=== PATIENT | female | born 1940 | race Caucasian/White ===

== ENCOUNTER 2018-12-15 08:26 | Day surgery (SDC) | payer MEDICARE ==
[2018-12-15] VITALS (12 sets, daily range): BP systolic 120–144; BP diastolic 58–79
[~2018-12-15] VITALS: Ht 167.6 cm; Wt 59.1 kg
[2018-12-15 10:07] LABS: ANION GAP 9 (8-16); BLOOD UREA NITROGEN 11 MG/DL (7-18); BUN/CREATININE RATIO 14.3 (6.6-38.0); CALCIUM 9.6 MG/DL (8.5-10.1); CHLORIDE 106 MMOL/L (99-107); CREATININE 0.77 MG/DL (0.40-0.90); GLUCOSE 89 MG/DL (70-104); POTASSIUM 4.3 MMOL/L (3.5-5.1); SODIUM 144 MMOL/L (135-145); TOTAL CARBON DIOXIDE 29.2 MMOL/L (24-32); eGFR 73 ML/MIN
[2018-12-15 10:12] LABS: BASOPHILS % (AUTO) 0.8 % (0-1); EOSINOPHILS # (AUTO) 0.1 X10'3 (0-0.9); EOSINOPHILS % (AUTO) 1.7 % (0-6); HEMATOCRIT 43.7 % (35.0-45.0); HEMOGLOBIN 14.7 g/dl (12.0-16.0); LYMPHOCYTES # (AUTO) 1.1 X10'3 (1.1-4.8); LYMPHOCYTES % (AUTO) 27.3 % (21-51); MEAN CORPUSCULAR HEMOGLOBIN 31.4 PG (27.0-31.0); MEAN CORPUSCULAR HGB CONC 33.7 g/dL (33.0-36.5); MEAN CORPUSCULAR VOLUME 93.2 FL (78-98); MEAN PLATELET VOLUME 8.8 FL (7.4-10.4); MONOCYTES # (AUTO) 0.5 X10'3 (0-0.9); MONOCYTES % (AUTO) 12.2 % (2-12); NEUTROPHILS # (AUTO) 2.3 X10'3 (1.8-7.7); PLATELET COUNT 199 X10'3 (140-440); RED BLOOD COUNT 4.68 X10'6 (4.20-5.60); WHITE BLOOD COUNT 3.9 X10'3 (4.5-11.0)
[2018-12-15] MEDS ORDERED: midazolam 2 mg/2 ml injection IV PRN (10:35)
[2018-12-15] MEDS ORDERED: fentaNYL/PF 50MCG/1 ML 2ML syringe IV PRN (10:35)
[2018-12-15] MEDS ORDERED: LIDOcaine 1% (10mg/ml) 2ml vial SQ ONE (10:35)
[2018-12-15] MEDS ORDERED: fentaNYL/PF 50MCG/1 ML 2ML syringe ONE (10:40)
[2018-12-15] MEDS ORDERED: midazolam 2 mg/2 ml injection ONE (10:40)
[2018-12-15] MEDS ORDERED: LEVO88TA2 PO (11:18)
[2018-12-15] MEDS ORDERED: BIOT1TAB PO (11:18)
== END 2018-12-15 12:45 | disposition home or self-care (01) ==
LOC: SSTAY O 08:26
PROVIDERS: ATTEND Radiology Vascular & Interventional Radiology
DX: I89.8 Other specified noninfective disorders of lymphatic vessels and lymph nodes (principal); Z88.5 Allergy status to narcotic agent; Z88.0 Allergy status to penicillin; Z90.11 Acquired absence of right breast and nipple; Z72.89 Other problems related to lifestyle; Z85.3 Personal history of malignant neoplasm of breast; Z79.01 Long term (current) use of anticoagulants; Z79.899 Other long term (current) drug therapy
CPT/HCPCS: 36415; 38505; 80048; 85025; 85610; 88184; 88185; 99152; 99153; J2250; J3010; 88173; 88305

== ENCOUNTER 2018-12-25 07:36 | Day surgery (SDC) | payer MEDICARE ==
[~2018-12-25] VITALS: Ht 167.6 cm; Wt 58.3 kg
[~2018-12-25 07:36] MED LIST: BIOT1TAB PO; LEVO88TA2 PO
[2018-12-25 08:10] VITALS: BP 114/61
[2018-12-25 08:56] LABS: BASOPHILS % (AUTO) 0.7 % (0-1); EOSINOPHILS # (AUTO) 0.1 X10'3 (0-0.9); HEMATOCRIT 41.5 % (35.0-45.0); HEMOGLOBIN 14.2 g/dl (12.0-16.0); LYMPHOCYTES # (AUTO) 1.2 X10'3 (1.1-4.8); LYMPHOCYTES % (AUTO) 27.6 % (21-51); MEAN CORPUSCULAR HEMOGLOBIN 31.8 PG (27.0-31.0); MEAN CORPUSCULAR HGB CONC 34.3 g/dL (33.0-36.5); MEAN CORPUSCULAR VOLUME 92.8 FL (78-98); MONOCYTES # (AUTO) 0.6 X10'3 (0-0.9); NEUTROPHILS # (AUTO) 2.5 X10'3 (1.8-7.7); NEUTROPHILS % (AUTO) 55.7 % (42-75); PLATELET COUNT 189 X10'3 (140-440); RED BLOOD COUNT 4.47 X10'6 (4.20-5.60); RED CELL DISTRIBUTION WIDTH 12.6 % (11.5-14.5); WHITE BLOOD COUNT 4.4 X10'3 (4.5-11.0)
--- NOTE | 2018-12-25 09:15 | NUR ---
Dr. Briggs came in and cancelled the procedure after discussing with the patient. IV dc'ed canula tip intact. Patients ride came and got her, patient walked out in stable condition. All belongings sent home with patient.
[2018-12-25 09:16] LABS: ALBUMIN 3.8 G/DL (3.4-5.0); ANION GAP 9 (8-16); BLOOD UREA NITROGEN 13 MG/DL (7-18); CHLORIDE 108 MMOL/L (99-107); CREATININE 0.81 MG/DL (0.40-0.90); GLUCOSE 101 MG/DL (70-104); POTASSIUM 3.9 MMOL/L (3.5-5.1); SODIUM 143 MMOL/L (135-145); TOTAL CARBON DIOXIDE 26.5 MMOL/L (24-32); eGFR 68 ML/MIN
== END 2018-12-25 09:15 | disposition home or self-care (01) ==
LOC: SSTAY O 07:36
PROVIDERS: ATTEND Radiology Diagnostic Radiology
DX: R59.0 Localized enlarged lymph nodes (principal); R91.1 Solitary pulmonary nodule; Z53.9 Procedure and treatment not carried out, unspecified reason
CPT/HCPCS: 36415; 80048; 85025